=== PATIENT | female | born 1950 | race Caucasian/White ===

== ENCOUNTER 2017-10-11 18:12 | Emergency (ER) | payer SELFPAY ==
[2017-10-11] MEDS: KETOROLAC 60 MG/2 ML VIAL (J1885) IM (20:11)
[2017-10-11] MEDS: NORCO, ANEXSIA 5/325MG TABLET (HYDROcodone/ACETAMINOPHEN) PO (20:11)
== END 2017-10-11 21:23 | disposition home or self-care (01) ==
LOC: M ED 18:12
DX: M17.12 Unilateral primary osteoarthritis, left knee (principal); I10 Essential (primary) hypertension
CPT/HCPCS: J1885